=== PATIENT | female | born 1990 | race Two or more races ===

== ENCOUNTER 2019-05-16 22:34 | Inpatient (IN) | payer BC ==
[2019-05-17] MEDS ORDERED: Butorphanol 1 MG/ML SDV IVPUSH ONE (01:11)
[2019-05-17] MEDS: Lactated Ringers 1,000 ML IV SCH ×6 (01:40→21:00)
[2019-05-17] MEDS ORDERED: Misoprostol 200 MCG Tab PO PRN (06:21)
[2019-05-17] MEDS ORDERED: Butorphanol 1 MG/ML SDV IVPUSH PRN (06:21)
[2019-05-17] MEDS ORDERED: Tranexamic Acid 1,000 MG in Sodium Chloride 0.9% 100 ML IV PRN (06:21)
[2019-05-17] MEDS ORDERED: Lidocaine 1% 50 ML MDV INJECT PRN (06:21)
[2019-05-17] MEDS ORDERED: Nalbuphine 10 MG/1 ML Vial IVPUSH PRN (06:21)
[2019-05-17] MEDS ORDERED: Sodium Chloride 0.9% 10 ML Syringe FLUSH PRN (06:21)
[2019-05-17] MEDS ORDERED: Sodium Chloride 0.9% 10 ML SDV IV PRN (06:21)
[2019-05-17] MEDS ORDERED: Water For Irrigation,Sterile 1,000 ML Container IRR PRN (06:21)
[2019-05-17] MEDS ORDERED: Methylergonovine 0.2 MG/1 ML Amp IM PRN (06:21)
[2019-05-17] MEDS ORDERED: Sodium Chloride 0.9% 2.5 ML Syringe FLUSH PRN (06:21)
[2019-05-17] MEDS ORDERED: Carboprost Tromethamine 250 MCG/1 ML Amp IM PRN (06:21)
[2019-05-17] MEDS ORDERED: Ampicillin 2 GM in Sodium Chloride 0.9% 100 ML IV ONE (06:26)
[2019-05-17] MEDS ORDERED: Oxytocin/0.9 % Sodium Chloride 30 UNIT/500 ML BAG IV SCH ×2 (06:30→09:30)
[2019-05-17] MEDS ORDERED: Terbutaline 1 MG/ML SDV SUBCUT PRN (09:24)
[2019-05-17] MEDS ORDERED: fentaNYL 100 MCG/2 ML SDV ONE ×2 (10:10→20:55)
[2019-05-17] MEDS ORDERED: Ropivacaine HCl/PF 100 ML ONE ×2 (10:11→20:55)
[2019-05-17] MEDS ORDERED: Ropivacaine 0.2% 2 MG/ML 20 ML SDV ONE (10:11)
--- NOTE | 2019-05-17 11:11 | PCM.PREANE ---
Preanesthetic Assessment - Anesthesia/Transfusion/Family Hx Anesthesia History: Prior Anesthesia Without Reaction Family History of Anesthesia Reaction: No Transfusion History: No Prior Transfusion(s) - Review of Systems General: No Symptoms Pulmonary: No Symptoms Cardiovascular: No Symptoms Gastrointestinal: No Symptoms Neurological: No Symptoms Other: Reports: None - Physical Assessment Pulse: 81 O2 Sat by Pulse Oximetry: 100 Respiratory Rate: 20 Blood Pressure: 114/78 Temperature: 37 F Height: 5 ft 5 in Weight: 76.657 kg ASA Class: 2E Mental Status: Alert & Oriented x3 Airway Class: Mallampati = 1 Dentition: Reports: Normal Dentition ROM/Head Extension: Full Lungs: Clear to Auscultation, Normal Respiratory Effort Cardiovascular: Regular Rate, Regular Rhythm - Lab Values: Laboratory Last Values WBC 11.81 K/uL (4.0-11.0) H 05/17/19 06:40 RBC 4.84 M/uL (4.30-5.90) 05/17/19 06:40 Hgb 12.9 g/dL (12.0-16.0) 05/17/19 06:40 Hct 39.2 % (36.0-46.0) 05/17/19 06:40 MCV 81.0 fL (80.0-98.0) 05/17/19 06:40 MCH 26.7 pg (27.0-32.0) L 05/17/19 06:40 MCHC 32.9 g/dL (31.0-37.0) 05/17/19 06:40 RDW Std Deviation 38.1 fl (28.0-62.0) 05/17/19 06:40 RDW Coeff of Racheal 13 % (11.0-15.0) 05/17/19 06:40 Plt Count 143 K/uL (150-400) L 05/17/19 06:40 MPV 12.70 fL (7.40-12.00) H 05/17/19 06:40 Nucleated RBC % 0.0 /100WBC 05/17/19 06:40 Nucleated RBCs # 0 K/uL 05/17/19 06:40 Urine Color YELLOW 05/17/19 00:19 Urine Appearance SLT CLOUDY 05/17/19 00:19 Urine pH 6.0 (5.0-8.0) 06/26/19 00:19 Ur Specific [place] >= 1.030 (1.001-1.035) 05/17/19 00:19 Urine Protein NEGATIVE mg/dL (NEGATIVE) 05/17/19 00:19 Urine Glucose (UA) NEGATIVE mg/dL (NEGATIVE) 05/17/19 00:19 Urine Ketones NEGATIVE mg/dL (NEGATIVE) 05/17/19 00:19 Urine Occult Blood NEGATIVE (NEGATIVE) 05/17/19 00:19 Urine Nitrite NEGATIVE (NEGATIVE) 05/17/19 00:19 Urine Bilirubin NEGATIVE (NEGATIVE) 05/17/19 00:19 Urine Urobilinogen 0.2 EU/dL (<2.0) 05/17/19 00:19 Ur Leukocyte Esterase NEGATIVE (NEGATIVE) 05/17/19 00:19 Blood Type B POSITIVE 05/17/19 06:40 Antibody Screen NEGATIVE 05/17/19 06:40 - Allergies Allergies/Adverse Reactions: Allergies Allergy/AdvReac Type Severity Reaction Status Date / Time No Known Allergies Allergy Verified 05/16/19 22:58 - Blood Blood Available: No Product(s) Available: None - Anesthesia Plan Pre-Op Medication Ordered: None - Acknowledgements Anesthesia Type Planned: Epidural Pt an Appropriate Candidate for the Planned Anesthesia: Yes Alternatives and Risks of Anesthesia Discussed w Pt/Guardian: Yes Pt/Guardian Understands and Agrees with Anesthesia Plan: Yes PreAnesthesia Questionnaire HEENT History: Reports: None Cardiovascular History: Reports: None Respiratory History: Reports: None Gastrointestinal History: Reports: None Genitourinary History: Reports: None PROSPECTING OBSERVER History: Reports: Musculoskeletal History: Reports: None Neurological History: Reports: None Psychiatric History: Reports: None Endocrine/Metabolic History: Reports: None Hematologic History: Reports: None Oncologic (Cancer) History: Reports: None Dermatologic History: Reports: None - Infectious Disease History Infectious Disease History: Reports: Chicken Pox, Measles - Past Surgical History HEENT Surgical History: Reports: None - SUBSTANCE USE Smoking Status *Q: Never Smoker Second Hand Smoke Exposure: No Recreational Drug Use History: No - HOME MEDS Home Medications: Home Meds Vit #76/Iron,Carb/Fa [Pnv 29-1 Tablet] 1 tab PO DAILY 05/16/19 [History ] - CURRENT (IN HOUSE) MEDS Current Meds: Current Medications Butorphanol Tartrate (Stadol) 1 mg IVPUSH Q1H PRN PRN Reason: Pain Carboprost Tromethamine (Hemabate Ds) 250 mcg IM ASDIRECTED PRN PRN Reason: Post Hemorrhage Lactated Ringer's (Ringers, Lactated) 1,000 mls @ 999 mls/hr IV ASDIRECTED [facility] Last Admin: 05/17/19 01:40 Dose: 999 mls/hr Tranexamic Acid 1,000 mg/ (Sodium Chloride) 110 mls @ 660 mls/hr IV ONETIME PRN PRN Reason: Bleeding Lactated Ringer's (Ringers, Lactated) 1,000 mls @ 150 mls/hr IV ASDIRECTED [facility] Last Admin: 05/17/19 10:55 Dose: 999 mls/hr Oxytocin/Sodium Chloride (Oxytocin 30 Unit/500 Ml-Ns) 30 unit in 500 mls @ 500 mls/hr IV TITRATE [facility] Ampicillin Sodium 1 gm/ Sodium (Chloride) 50 mls @ 100 mls/hr IV Q4H [facility] Oxytocin/Sodium Chloride (Oxytocin 30 Unit/500 Ml-Ns) 30 unit in 500 mls @ 2 mls/hr IV TITRATE [facility]; Protocol Lidocaine HCl (Xylocaine 1%) 50 ml INJECT ONETIME PRN PRN Reason: Laceration repair Methylergonovine Maleate (Methergine) 0.2 mg IM ASDIRECTED PRN PRN Reason: Post Hemorrhage Misoprostol (Cytotec) 200 mcg PO ONETIME PRN PRN Reason: Post Hemorrhage Nalbuphine HCl (Nubain) 10 mg IVPUSH Q1H PRN PRN Reason: Pain (severe 7-10) Sodium Chloride (Saline Flush) 10 ml FLUSH ASDIRECTED PRN PRN Reason: Keep Vein Open Sodium Chloride (Saline Flush) 2.5 ml FLUSH ASDIRECTED PRN PRN Reason: Keep Vein Open Sodium Chloride (Normal Saline) 10 ml IV ASDIRECTED PRN PRN Reason: IV Use Sterile Water (Sterile Water For Irrigation) 1,000 ml IRR ASDIRECTED PRN PRN Reason: delivery Terbutaline Sulfate (Brethine) 0.25 mg SUBCUT ASDIRECTED PRN PRN Reason: Tacysystole Discontinued Medications Butorphanol Tartrate (Stadol) 1 mg IVPUSH ONETIME ONE Stop: 05/17/19 01:12 Last Admin: 05/17/19 01:42 Dose: 1 mg Fentanyl (Sublimaze) Confirm Administered Dose 200 mcg .ROUTE .STK-MED ONE Stop: 05/17/19 10:11 Ampicillin Sodium 2 gm/ Sodium (Chloride) 100 mls @ 200 mls/hr IV ONETIME ONE Stop: 05/17/19 06:55 Last Admin: 05/17/19 06:52 Dose: 200 mls/hr Ropivacaine (Naropin 0.2%) Confirm Administered Dose 100 mls @ as directed .ROUTE .STK-MED ONE Stop: 05/17/19 10:12 Ropivacaine (Naropin 0.2%) Confirm Administered Dose 20 ml .ROUTE .STK-MED ONE Stop: 05/17/19 10:12
[2019-05-17] MEDS: Ampicillin 1 GM in Sodium Chloride 0.9% 50 ML IV SCH ×4 (11:14→23:00)
[2019-05-17] MEDS ORDERED: Lidocaine 2% 5 ML SDV ONE (21:41)
[2019-05-17] MEDS ORDERED: Bupivacaine 0.5% 30 ML SDV ONE (22:41)
[2019-05-17] MEDS ORDERED: Propofol 200 MG/20 ML SDV ONE (22:42)
[2019-05-18] MEDS ORDERED: Morphine 2 MG/ML Syringe IVPUSH ONE (00:29)
[2019-05-18] MEDS ORDERED: Bisacodyl 10 MG Supp RECTAL PRN (00:59)
[2019-05-18] MEDS ORDERED: Lanolin 100% Cream 7 GM Tube TOP PRN (00:59)
[2019-05-18] MEDS ORDERED: Benzocaine/Menthol 20%-0.5% Spray 78 GM Cannister TOP PRN (00:59)
[2019-05-18] MEDS ORDERED: Acetaminophen 500 MG Tab PO PRN ×2 (00:59)
[2019-05-18] MEDS ORDERED: Witch Hazel Medicated Pads 40/Jar TOP PRN (00:59)
[2019-05-18] MEDS ORDERED: Ibuprofen 400 MG Tab PO PRN (00:59)
--- NOTE | 2019-05-18 01:09 | PCM.DEL ---
L & D Note - General Info Date of Service: 05/18/19 Mother's Due Date: 05/30/19 - Delivery Note Labor: Augmented by Oxytocin Delivery Outcome: Livebirth Infant Delivery Method: Spontaneous Vaginal Delivery-Single Presentation: Right Occiput Posterior (ROP) Nuchal Cord: None Anesthesia Type: Epidural Amniotic Fluid Description: Bloody Episiotomy Type: None Laceration: None Placenta: Intact Cord: 3 Vessels Estimated Blood Loss: 500 Resuscitation Needed: Yes [place]: Suctioned, Cathether, Stimulated, Warmed Score 1 min: 3 Score 5 min: 5 Score 10 min: 7 Delivery Comments (Free Text/Narrative):: Live male delivered at 00.08am , pending , weight 3330g . Delivered in ROP position. Noted some perineal and labial soft tissue swelling , will do cold compress - General Info Date of Service: 05/18/19 - Patient Data Vitals - Most Recent: Last Vital Signs Temp 2.7 C L 05/17/19 11:10 Pulse 81 05/17/19 11:10 Resp 20 05/17/19 11:10 BP 114/78 05/17/19 11:10 Pulse Ox 100 05/17/19 11:10 Weight - Most Recent: 76.657 kg Lab Results Last 24 Hours: Laboratory Results - last 24 hr 05/17/19 05/17/19 Range/Units 06:40 06:40 WBC 11.81 H (4.0-11.0) K/uL RBC 4.84 (4.30-5.90) M/uL Hgb 12.9 (12.0-16.0) g/dL Hct 39.2 (36.0-46.0) % MCV 81.0 (80.0-98.0) fL MCH 26.7 L (27.0-32.0) pg MCHC 32.9 (31.0-37.0) g/dL RDW Std Deviation 38.1 (28.0-62.0) fl RDW Coeff of Racheal 13 (11.0-15.0) % Plt Count 143 L (150-400) K/uL MPV 12.70 H (7.40-12.00) fL Nucleated RBC % 0.0 /100WBC Nucleated RBCs # 0 K/uL Blood Type B POSITIVE Antibody Screen NEGATIVE Med Orders - Current: Current Medications Carboprost Tromethamine (Hemabate Ds) 250 mcg IM ASDIRECTED PRN PRN Reason: Post Hemorrhage Lactated Ringer's (Ringers, Lactated) 1,000 mls @ 999 mls/hr IV ASDIRECTED [facility] Last Admin: 05/17/19 18:50 Dose: 150 mls/hr Tranexamic Acid 1,000 mg/ (Sodium Chloride) 110 mls @ 660 mls/hr IV ONETIME PRN PRN Reason: Bleeding Lactated Ringer's (Ringers, Lactated) 1,000 mls @ 150 mls/hr IV ASDIRECTED [facility] Last Admin: 05/17/19 21:00 Dose: 150 mls/hr Oxytocin/Sodium Chloride (Oxytocin 30 Unit/500 Ml-Ns) 30 unit in 500 mls @ 500 mls/hr IV TITRATE [facility] Oxytocin/Sodium Chloride (Oxytocin 30 Unit/500 Ml-Ns) 30 unit in 500 mls @ 2 mls/hr IV TITRATE [facility]; Protocol Last Titration: 05/17/19 19:39 Dose: 0 munits/min, 0 mls/hr Methylergonovine Maleate (Methergine) 0.2 mg IM ASDIRECTED PRN PRN Reason: Post Hemorrhage Last Admin: 05/18/19 00:22 Dose: 0.2 mg Misoprostol (Cytotec) 200 mcg PO ONETIME PRN PRN Reason: Post Hemorrhage Nalbuphine HCl (Nubain) 10 mg IVPUSH Q1H PRN PRN Reason: Pain (severe 7-10) Sodium Chloride (Saline Flush) 10 ml FLUSH ASDIRECTED PRN PRN Reason: Keep Vein Open Sodium Chloride (Saline Flush) 2.5 ml FLUSH ASDIRECTED PRN PRN Reason: Keep Vein Open Sodium Chloride (Normal Saline) 10 ml IV ASDIRECTED PRN PRN Reason: IV Use Sterile Water (Sterile Water For Irrigation) 1,000 ml IRR ASDIRECTED PRN PRN Reason: delivery Terbutaline Sulfate (Brethine) 0.25 mg SUBCUT ASDIRECTED PRN PRN Reason: Tacysystole Discontinued Medications Bupivacaine HCl (Marcaine 0.5%) Confirm Administered Dose 30 ml .ROUTE .STK-MED ONE Stop: 05/17/19 22:42 Butorphanol Tartrate (Stadol) 1 mg IVPUSH ONETIME ONE Stop: 05/17/19 01:12 Last Admin: 05/17/19 01:42 Dose: 1 mg Butorphanol Tartrate (Stadol) 1 mg IVPUSH Q1H PRN PRN Reason: Pain Fentanyl (Sublimaze) Confirm Administered Dose 200 mcg .ROUTE .STK-MED ONE Stop: 05/17/19 10:11 Fentanyl (Sublimaze) Confirm Administered Dose 100 mcg .ROUTE .STK-MED ONE Stop: 05/17/19 20:56 Ampicillin Sodium 2 gm/ Sodium (Chloride) 100 mls @ 200 mls/hr IV ONETIME ONE Stop: 05/17/19 06:55 Last Admin: 05/17/19 06:52 Dose: 200 mls/hr Ampicillin Sodium 1 gm/ Sodium (Chloride) 50 mls @ 100 mls/hr IV Q4H [facility] Last Admin: 05/17/19 23:00 Dose: 100 mls/hr Ropivacaine (Naropin 0.2%) Confirm Administered Dose 100 mls @ as directed .ROUTE .STK-MED ONE Stop: 05/17/19 10:12 Ropivacaine (Naropin 0.2%) Confirm Administered Dose 100 mls @ as directed .ROUTE .STK-MED ONE Stop: 05/17/19 20:56 Lidocaine (Xylocaine-Mpf 2%) Confirm Administered Dose 5 ml .ROUTE .STK-MED ONE Stop: 05/17/19 21:42 Lidocaine HCl (Xylocaine 1%) 50 ml INJECT ONETIME PRN PRN Reason: Laceration repair Morphine Sulfate (Morphine) 4 mg IVPUSH ONETIME ONE Stop: 05/18/19 00:30 Last Admin: 05/18/19 00:45 Dose: 4 mg Propofol (Diprivan 20 Ml) Confirm Administered Dose 200 mg .ROUTE .STK-MED ONE Stop: 05/17/19 22:43 Ropivacaine (Naropin 0.2%) Confirm Administered Dose 20 ml .ROUTE .STK-MED ONE Stop: 05/17/19 10:12 - Problem List Review Problem List Initiated/Reviewed/Updated: Yes - My Orders Last 24 Hours: My Active Orders 05/17/19 09:24 Bedrest Bathroom Privileges [RC] ASDIRECTED Communication Order [RC] ASDIRECTED Notify Provider [RC] PRN Notify Provider [RC] PRN Notify Provider [RC] STAT Oxygen Therapy [RC] ASDIRECTED Terbutaline [Brethine] 0.25 mg SUBCUT ASDIRECTED PRN 05/17/19 09:30 Oxytocin/0.9 % Sodium Chloride [Oxytocin 30 Unit/500 ML-NS] 30 unit in 500 ml IV TITRATE Medication Administration Instruction [OM.PC] Q3H 05/18/19 00:59 Patient Status [ADT] Routine May Shower [RC] ASDIRECTED Up ad Yolanda [RC] ASDIRECTED Vital Signs [RC] PER UNIT ROUTINE Acetaminophen [Tylenol Extra Strength] 1,000 mg PO Q4H PRN Acetaminophen [Tylenol Extra Strength] 500 mg PO Q4H PRN Benzocaine/Menthol [Dermoplast Pain Relief 20%-0.5% [place]] 78 gm TOP ASDIRECTED PRN Bisacodyl [Dulcolax] 10 mg RECTAL ONETIME PRN Docusate Sodium [Colace] 100 mg PO BID PRN Ibuprofen [Motrin] 400 mg PO Q4H PRN Ibuprofen [Motrin] 800 mg PO Q6H PRN Lanolin [Lansinoh HPA] See Dose Instructions TOP ASDIRECTED PRN Witch Maribeth [Tucks] 1 pad TOP ASDIRECTED PRN oxyCODONE 5 mg PO Q2H PRN Assess Lochia [WOMSER] Per Unit Routine Assess Uterine Involution [WOMSER] Per Unit Routine Peripheral IV Discontinue [OM.PC] Routine Resuscitation Status Routine 05/19/19 05:11 HEMOGLOBIN/HEMATOCRIT,HH [HEME] Timed
[2019-05-18] MEDS: oxyCODONE 5 MG Tab PO PRN ×3 (02:35→14:42)
[2019-05-18] MEDS: Ibuprofen 800 MG Tab PO PRN ×3 (04:25→18:26)
[2019-05-18] MEDS: Docusate Sodium 100 MG Cap PO PRN (09:32)
--- NOTE | 2019-05-18 10:53 | PCM.POSTAN ---
POST ANESTHESIA ASSESSMENT - MENTAL STATUS Mental Status: Oriented - RESPIRATORY Respiratory Status: Respiratory Rate WNL, Airway Patent, O2 Saturation Stable - CARDIOVASCULAR CV Status: Pulse Rate WNL, Blood Pressure Stable - GASTROINTESTINAL GI Status: No Symptoms - POST OP HYDRATION Hydration Status: Adequate & Stable
[2019-05-19] MEDS: Ibuprofen 800 MG Tab PO PRN ×3 (01:39→19:44)
--- NOTE | 2019-05-19 07:06 | PCM48HPAN ---
Post Anesthesia Note - EVALUATION WITHIN 48HRS OF ANESTHETIC Vital Signs in Normal Range: Yes Patient Participated in Evaluation: Yes Respiratory Function Stable: Yes Airway Patent: Yes Cardiovascular Function Stable: Yes Hydration Status Stable: Yes Pain Control Satisfactory: Yes Nausea and Vomiting Control Satisfactory: Yes Mental Status Recovered: Yes Pulse Rate: 95 SaO2: 97 Resp Rate: 17 Temperature: 97.6 F Blood Pressure: 111/71
[2019-05-19] MEDS: Docusate Sodium 100 MG Cap PO PRN ×2 (08:07→19:43)
--- NOTE | 2019-05-19 10:20 | PCM.PNPP ---
- General Info Date of Service: 05/19/19 Subjective Update: 28 yo P2 s/p , ambulating , , good pain control. on IV antibiotics for 48hrs Functional Status: Reports: Pain Controlled, Tolerating Diet, Ambulating, Urinating - Review of Systems General: Reports: No Symptoms HEENT: Reports: No Symptoms Pulmonary: Reports: No Symptoms Cardiovascular: Reports: No Symptoms Gastrointestinal: Reports: No Symptoms Genitourinary: Reports: No Symptoms Musculoskeletal: Reports: No Symptoms Skin: Reports: No Symptoms Neurological: Reports: No Symptoms Psychiatric: Reports: No Symptoms - General Info Date of Service: 05/19/19 - Patient Data Vital Signs - Most Recent: Last Vital Signs Temp 36.2 C 05/19/19 07:43 Pulse 64 05/19/19 07:43 Resp 16 05/19/19 07:43 BP 122/85 05/19/19 07:43 Pulse Ox 96 05/19/19 07:43 Weight - Most Recent: 76.657 kg Lab Results - Last 24 Hours: Laboratory Results - last 24 hr 05/19/19 Range/Units 05:18 Hgb 10.5 L (12.0-16.0) g/dL Hct 32.5 L (36.0-46.0) % Med Orders - Current: Current Medications Acetaminophen (Tylenol Extra Strength) 500 mg PO Q4H PRN PRN Reason: Pain Last Admin: 05/18/19 02:39 Dose: 500 mg Acetaminophen (Tylenol Extra Strength) 1,000 mg PO Q4H PRN PRN Reason: Pain Last Admin: 05/19/19 06:33 Dose: 1,000 mg Benzocaine/Menthol (Dermoplast Pain Relief 20%-0.5% [place]) 78 gm TOP ASDIRECTED PRN PRN Reason: Perineal Comfort Measure Last Admin: 05/18/19 09:46 Dose: 1 canister Bisacodyl (Dulcolax) 10 mg RECTAL ONETIME PRN PRN Reason: Constipation Carboprost Tromethamine (Hemabate Ds) 250 mcg IM ASDIRECTED PRN PRN Reason: Post Hemorrhage Docusate Sodium (Colace) 100 mg PO BID PRN PRN Reason: Constipation Last Admin: 05/19/19 08:07 Dose: 100 mg Emollient Ointment (Lansinoh Hpa) 0 gm TOP ASDIRECTED PRN PRN Reason: Sore Nipples Last Admin: 05/18/19 09:47 Dose: 1 tube Lactated Ringer's (Ringers, Lactated) 1,000 mls @ 999 mls/hr IV ASDIRECTED [facility] Last Admin: 05/17/19 18:50 Dose: 150 mls/hr Tranexamic Acid 1,000 mg/ (Sodium Chloride) 110 mls @ 660 mls/hr IV ONETIME PRN PRN Reason: Bleeding Lactated Ringer's (Ringers, Lactated) 1,000 mls @ 150 mls/hr IV ASDIRECTED [facility] Last Admin: 05/17/19 21:00 Dose: 150 mls/hr Oxytocin/Sodium Chloride (Oxytocin 30 Unit/500 Ml-Ns) 30 unit in 500 mls @ 500 mls/hr IV TITRATE [facility] Oxytocin/Sodium Chloride (Oxytocin 30 Unit/500 Ml-Ns) 30 unit in 500 mls @ 2 mls/hr IV TITRATE [facility]; Protocol Last Titration: 05/17/19 19:39 Dose: 0 munits/min, 0 mls/hr Ibuprofen (Motrin) 400 mg PO Q4H PRN PRN Reason: Pain Ibuprofen (Motrin) 800 mg PO Q6H PRN PRN Reason: Pain Last Admin: 05/19/19 10:05 Dose: 800 mg Methylergonovine Maleate (Methergine) 0.2 mg IM ASDIRECTED PRN PRN Reason: Post Hemorrhage Last Admin: 05/18/19 00:22 Dose: 0.2 mg Misoprostol (Cytotec) 200 mcg PO ONETIME PRN PRN Reason: Post Hemorrhage Nalbuphine HCl (Nubain) 10 mg IVPUSH Q1H PRN PRN Reason: Pain (severe 7-10) Oxycodone HCl (Oxycodone) 5 mg PO Q2H PRN PRN Reason: Pain Last Admin: 05/18/19 14:42 Dose: 5 mg Sodium Chloride (Saline Flush) 10 ml FLUSH ASDIRECTED PRN PRN Reason: Keep Vein Open Sodium Chloride (Saline Flush) 2.5 ml FLUSH ASDIRECTED PRN PRN Reason: Keep Vein Open Sodium Chloride (Normal Saline) 10 ml IV ASDIRECTED PRN PRN Reason: IV Use Sterile Water (Sterile Water For Irrigation) 1,000 ml IRR ASDIRECTED PRN PRN Reason: delivery Terbutaline Sulfate (Brethine) 0.25 mg SUBCUT ASDIRECTED PRN PRN Reason: Tacysystole Witch Maribeth (Tucks) 1 pad TOP ASDIRECTED PRN PRN Reason: comfort care Last Admin: 05/18/19 09:47 Dose: 1 tub Discontinued Medications Bupivacaine HCl (Marcaine 0.5%) Confirm Administered Dose 30 ml .ROUTE .STK-MED ONE Stop: 05/17/19 22:42 Last Admin: 05/18/19 19:38 Dose: Not Given Butorphanol Tartrate (Stadol) 1 mg IVPUSH ONETIME ONE Stop: 05/17/19 01:12 Last Admin: 05/17/19 01:42 Dose: 1 mg Butorphanol Tartrate (Stadol) 1 mg IVPUSH Q1H PRN PRN Reason: Pain Fentanyl (Sublimaze) Confirm Administered Dose 200 mcg .ROUTE .STK-MED ONE Stop: 05/17/19 10:11 Last Admin: 05/18/19 19:37 Dose: Not Given Fentanyl (Sublimaze) Confirm Administered Dose 100 mcg .ROUTE .STK-MED ONE Stop: 05/17/19 20:56 Last Admin: 05/18/19 19:37 Dose: Not Given Ampicillin Sodium 2 gm/ Sodium (Chloride) 100 mls @ 200 mls/hr IV ONETIME ONE Stop: 05/17/19 06:55 Last Admin: 05/17/19 06:52 Dose: 200 mls/hr Ampicillin Sodium 1 gm/ Sodium (Chloride) 50 mls @ 100 mls/hr IV Q4H VIANEY Last Admin: 05/17/19 23:00 Dose: 100 mls/hr Ropivacaine (Naropin 0.2%) Confirm Administered Dose 100 mls @ as directed .ROUTE .STK-MED ONE Stop: 05/17/19 10:12 Last Admin: 05/18/19 19:37 Dose: Not Given Ropivacaine (Naropin 0.2%) Confirm Administered Dose 100 mls @ as directed .ROUTE .STK-MED ONE Stop: 05/17/19 20:56 Last Admin: 05/18/19 19:37 Dose: Not Given Lidocaine (Xylocaine-Mpf 2%) Confirm Administered Dose 5 ml .ROUTE .STK-MED ONE Stop: 05/17/19 21:42 Last Admin: 05/18/19 19:37 Dose: Not Given Lidocaine HCl (Xylocaine 1%) 50 ml INJECT ONETIME PRN PRN Reason: Laceration repair Morphine Sulfate (Morphine) 4 mg IVPUSH ONETIME ONE Stop: 05/18/19 00:30 Last Admin: 05/18/19 00:45 Dose: 4 mg Propofol (Diprivan 20 Ml) Confirm Administered Dose 200 mg .ROUTE .STK-MED ONE Stop: 05/17/19 22:43 Ropivacaine (Naropin 0.2%) Confirm Administered Dose 20 ml .ROUTE .STK-MED ONE Stop: 05/17/19 10:12 Last Admin: 05/18/19 19:37 Dose: Not Given - Infant Interaction Support Person: - Recovery Exam Fundal Tone: Firm Fundal Level: 1 Fingerbreadths Below Umbilicus Fundal Placement: Midline Lochia Amount: Scant Lochia Color: Rubra/Red Perineum Description: Edematous Episiotomy/Laceration: None Bladder Status: Voiding Urinary Elimination: Voided - Exam General: Alert, Oriented HEENT: Pupils Equal Neck: Supple Lungs: Clear to Auscultation Cardiovascular: Regular Rate, Regular Rhythm GI/Abdominal Exam: Normal Bowel Sounds Extremities: Normal Inspection Wound/Incisions: Healing Well Neurological: No New Focal Deficit Psy/Mental Status: Alert - Problem List & Annotations (1) Vaginal delivery SNOMED Code(s): 173118299 Code(s): O80 - ENCOUNTER FOR FULL-TERM UNCOMPLICATED DELIVERY Status: Acute Current Visit: Yes - Problem List Review Problem List Initiated/Reviewed/Updated: Yes - Assessment Assessment:: 28 yo P2 s/p , ambulating , , good pain control. on IV antibiotics for 48hrs - Plan Plan:: Routine care Pain control as needed
[2019-05-20] MEDS: Ibuprofen 800 MG Tab PO PRN (02:04)
--- NOTE | 2019-05-20 09:48 | PCM.PNPP ---
- General Info Date of Service: 05/20/19 Subjective Update: 28 yo P2 s/p , ambulating , , good pain control. PPD2 stable Functional Status: Reports: Pain Controlled, Tolerating Diet, Ambulating, Urinating - Review of Systems General: Reports: No Symptoms HEENT: Reports: No Symptoms Pulmonary: Reports: No Symptoms Cardiovascular: Reports: No Symptoms Gastrointestinal: Reports: No Symptoms Genitourinary: Reports: No Symptoms Musculoskeletal: Reports: No Symptoms Skin: Reports: No Symptoms Neurological: Reports: No Symptoms Psychiatric: Reports: No Symptoms - General Info Date of Service: 05/20/19 - Patient Data Vital Signs - Most Recent: Last Vital Signs Temp 36.4 C 05/20/19 07:15 Pulse 86 05/20/19 07:15 Resp 17 05/20/19 07:15 BP 117/76 05/20/19 07:15 Pulse Ox 97 05/20/19 07:15 Weight - Most Recent: 76.657 kg Med Orders - Current: Current Medications Acetaminophen (Tylenol Extra Strength) 500 mg PO Q4H PRN PRN Reason: Pain Last Admin: 05/18/19 02:39 Dose: 500 mg Acetaminophen (Tylenol Extra Strength) 1,000 mg PO Q4H PRN PRN Reason: Pain Last Admin: 05/19/19 06:33 Dose: 1,000 mg Benzocaine/Menthol (Dermoplast Pain Relief 20%-0.5% [place]) 78 gm TOP ASDIRECTED PRN PRN Reason: Perineal Comfort Measure Last Admin: 05/18/19 09:46 Dose: 1 canister Bisacodyl (Dulcolax) 10 mg RECTAL ONETIME PRN PRN Reason: Constipation Carboprost Tromethamine (Hemabate Ds) 250 mcg IM ASDIRECTED PRN PRN Reason: Post Hemorrhage Docusate Sodium (Colace) 100 mg PO BID PRN PRN Reason: Constipation Last Admin: 05/19/19 19:43 Dose: 100 mg Emollient Ointment (Lansinoh Hpa) 0 gm TOP ASDIRECTED PRN PRN Reason: Sore Nipples Last Admin: 05/18/19 09:47 Dose: 1 tube Lactated Ringer's (Ringers, Lactated) 1,000 mls @ 999 mls/hr IV ASDIRECTED VIANEY Last Admin: 05/17/19 18:50 Dose: 150 mls/hr Tranexamic Acid 1,000 mg/ (Sodium Chloride) 110 mls @ 660 mls/hr IV ONETIME PRN PRN Reason: Bleeding Lactated Ringer's (Ringers, Lactated) 1,000 mls @ 150 mls/hr IV ASDIRECTED VIANEY Last Admin: 05/17/19 21:00 Dose: 150 mls/hr Oxytocin/Sodium Chloride (Oxytocin 30 Unit/500 Ml-Ns) 30 unit in 500 mls @ 500 mls/hr IV TITRATE VIANEY Oxytocin/Sodium Chloride (Oxytocin 30 Unit/500 Ml-Ns) 30 unit in 500 mls @ 2 mls/hr IV TITRATE VIANEY; Protocol Last Titration: 05/17/19 19:39 Dose: 0 munits/min, 0 mls/hr Ibuprofen (Motrin) 400 mg PO Q4H PRN PRN Reason: Pain Ibuprofen (Motrin) 800 mg PO Q6H PRN PRN Reason: Pain Last Admin: 05/20/19 02:04 Dose: 800 mg Methylergonovine Maleate (Methergine) 0.2 mg IM ASDIRECTED PRN PRN Reason: Post Hemorrhage Last Admin: 05/18/19 00:22 Dose: 0.2 mg Misoprostol (Cytotec) 200 mcg PO ONETIME PRN PRN Reason: Post Hemorrhage Nalbuphine HCl (Nubain) 10 mg IVPUSH Q1H PRN PRN Reason: Pain (severe 7-10) Oxycodone HCl (Oxycodone) 5 mg PO Q2H PRN PRN Reason: Pain Last Admin: 05/18/19 14:42 Dose: 5 mg Sodium Chloride (Saline Flush) 10 ml FLUSH ASDIRECTED PRN PRN Reason: Keep Vein Open Sodium Chloride (Saline Flush) 2.5 ml FLUSH ASDIRECTED PRN PRN Reason: Keep Vein Open Sodium Chloride (Normal Saline) 10 ml IV ASDIRECTED PRN PRN Reason: IV Use Sterile Water (Sterile Water For Irrigation) 1,000 ml IRR ASDIRECTED PRN PRN Reason: delivery Terbutaline Sulfate (Brethine) 0.25 mg SUBCUT ASDIRECTED PRN PRN Reason: Tacysystole Witch Maribeth (Tucks) 1 pad TOP ASDIRECTED PRN PRN Reason: comfort care Last Admin: 05/18/19 09:47 Dose: 1 tub Discontinued Medications Bupivacaine HCl (Marcaine 0.5%) Confirm Administered Dose 30 ml .ROUTE .STK-MED ONE Stop: 05/17/19 22:42 Last Admin: 05/18/19 19:38 Dose: Not Given Butorphanol Tartrate (Stadol) 1 mg IVPUSH ONETIME ONE Stop: 05/17/19 01:12 Last Admin: 05/17/19 01:42 Dose: 1 mg Butorphanol Tartrate (Stadol) 1 mg IVPUSH Q1H PRN PRN Reason: Pain Fentanyl (Sublimaze) Confirm Administered Dose 200 mcg .ROUTE .STK-MED ONE Stop: 05/17/19 10:11 Last Admin: 05/18/19 19:37 Dose: Not Given Fentanyl (Sublimaze) Confirm Administered Dose 100 mcg .ROUTE .STK-MED ONE Stop: 05/17/19 20:56 Last Admin: 05/18/19 19:37 Dose: Not Given Ampicillin Sodium 2 gm/ Sodium (Chloride) 100 mls @ 200 mls/hr IV ONETIME ONE Stop: 05/17/19 06:55 Last Admin: 05/17/19 06:52 Dose: 200 mls/hr Ampicillin Sodium 1 gm/ Sodium (Chloride) 50 mls @ 100 mls/hr IV Q4H VIANEY Last Admin: 05/17/19 23:00 Dose: 100 mls/hr Ropivacaine (Naropin 0.2%) Confirm Administered Dose 100 mls @ as directed .ROUTE .STK-MED ONE Stop: 05/17/19 10:12 Last Admin: 05/18/19 19:37 Dose: Not Given Ropivacaine (Naropin 0.2%) Confirm Administered Dose 100 mls @ as directed .ROUTE .STK-MED ONE Stop: 05/17/19 20:56 Last Admin: 05/18/19 19:37 Dose: Not Given Lidocaine (Xylocaine-Mpf 2%) Confirm Administered Dose 5 ml .ROUTE .STK-MED ONE Stop: 05/17/19 21:42 Last Admin: 05/18/19 19:37 Dose: Not Given Lidocaine HCl (Xylocaine 1%) 50 ml INJECT ONETIME PRN PRN Reason: Laceration repair Morphine Sulfate (Morphine) 4 mg IVPUSH ONETIME ONE Stop: 05/18/19 00:30 Last Admin: 05/18/19 00:45 Dose: 4 mg Propofol (Diprivan 20 Ml) Confirm Administered Dose 200 mg .ROUTE .STK-MED ONE Stop: 05/17/19 22:43 Ropivacaine (Naropin 0.2%) Confirm Administered Dose 20 ml .ROUTE .STK-MED ONE Stop: 05/17/19 10:12 Last Admin: 05/18/19 19:37 Dose: Not Given - Infant Interaction Support Person: - Recovery Exam Fundal Tone: Firm Fundal Level: 1 Fingerbreadths Below Umbilicus Fundal Placement: Midline Lochia Amount: Scant Lochia Color: Rubra/Red Perineum Description: Intact, Minimal Bruising/Swelling Episiotomy/Laceration: None Bladder Status: Voiding Urinary Elimination: Voided - Exam General: Alert, Oriented HEENT: Pupils Equal Neck: Supple Lungs: Clear to Auscultation Cardiovascular: Regular Rate, Regular Rhythm GI/Abdominal Exam: Normal Bowel Sounds Extremities: Normal Inspection Neurological: No New Focal Deficit Psy/Mental Status: Alert - Problem List & Annotations (1) Vaginal delivery SNOMED Code(s): 608271610 Code(s): O80 - ENCOUNTER FOR FULL-TERM UNCOMPLICATED DELIVERY Status: Acute Current Visit: Yes - Problem List Review Problem List Initiated/Reviewed/Updated: No - Assessment Assessment:: 28 yo P2 s/p , ambulating , , good pain control. PPD2 - Plan Plan:: Discharge home today
--- NOTE | 2019-05-20 09:51 | PCM.DCSUM1 ---
Discharge Summary - Hospital Course Brief History: 28 yo s/p PPD2 Diagnosis: Stroke: No - Discharge Data Discharge Date: 05/20/19 Discharge Disposition: Home, Self-Care 01 Condition: Good - Discharge Diagnosis/Problem(s) (1) Vaginal delivery SNOMED Code(s): 524031111 ICD Code: O80 - ENCOUNTER FOR FULL-TERM UNCOMPLICATED DELIVERY Status: Acute Current Visit: Yes - Patient Instructions Diet: Usual Diet as Tolerated Activity: As Tolerated Showering/Bathing: May Shower Notify Provider of: Fever, Increased Pain, Swelling and Redness, Drainage - Discharge Plan *PRESCRIPTION DRUG MONITORING PROGRAM REVIEWED*: No *COPY OF PRESCRIPTION DRUG MONITORING REPORT IN PATIENT QUETA: No Home Medications: Home Meds Vit #76/Iron,Carb/Fa [Pnv 29-1 Tablet] 1 tab PO DAILY 05/16/19 [History ] Patient Handouts: Vaginal Delivery, Care After Referrals: [facility] [Outside] Elias Sena MD [Physician] - 07/05/19 11:15 am - Discharge Summary/Plan Comment DC Time >30 min.: No - Patient Data Vitals - Most Recent: Last Vital Signs Temp 36.4 C 05/20/19 07:15 Pulse 86 05/20/19 07:15 Resp 17 05/20/19 07:15 BP 117/76 05/20/19 07:15 Pulse Ox 97 05/20/19 07:15 Weight - Most Recent: 76.657 kg Med Orders - Current: Current Medications Acetaminophen (Tylenol Extra Strength) 500 mg PO Q4H PRN PRN Reason: Pain Last Admin: 05/18/19 02:39 Dose: 500 mg Acetaminophen (Tylenol Extra Strength) 1,000 mg PO Q4H PRN PRN Reason: Pain Last Admin: 05/19/19 06:33 Dose: 1,000 mg Benzocaine/Menthol (Dermoplast Pain Relief 20%-0.5% [place]) 78 gm TOP ASDIRECTED PRN PRN Reason: Perineal Comfort Measure Last Admin: 05/18/19 09:46 Dose: 1 canister Bisacodyl (Dulcolax) 10 mg RECTAL ONETIME PRN PRN Reason: Constipation Carboprost Tromethamine (Hemabate Ds) 250 mcg IM ASDIRECTED PRN PRN Reason: Post Hemorrhage Docusate Sodium (Colace) 100 mg PO BID PRN PRN Reason: Constipation Last Admin: 05/19/19 19:43 Dose: 100 mg Emollient Ointment (Lansinoh Hpa) 0 gm TOP ASDIRECTED PRN PRN Reason: Sore Nipples Last Admin: 05/18/19 09:47 Dose: 1 tube Lactated Ringer's (Ringers, Lactated) 1,000 mls @ 999 mls/hr IV ASDIRECTED VIANEY Last Admin: 05/17/19 18:50 Dose: 150 mls/hr Tranexamic Acid 1,000 mg/ (Sodium Chloride) 110 mls @ 660 mls/hr IV ONETIME PRN PRN Reason: Bleeding Lactated Ringer's (Ringers, Lactated) 1,000 mls @ 150 mls/hr IV ASDIRECTED VIANEY Last Admin: 05/17/19 21:00 Dose: 150 mls/hr Oxytocin/Sodium Chloride (Oxytocin 30 Unit/500 Ml-Ns) 30 unit in 500 mls @ 500 mls/hr IV TITRATE VIANEY Oxytocin/Sodium Chloride (Oxytocin 30 Unit/500 Ml-Ns) 30 unit in 500 mls @ 2 mls/hr IV TITRATE VIANEY; Protocol Last Titration: 05/17/19 19:39 Dose: 0 munits/min, 0 mls/hr Ibuprofen (Motrin) 400 mg PO Q4H PRN PRN Reason: Pain Ibuprofen (Motrin) 800 mg PO Q6H PRN PRN Reason: Pain Last Admin: 05/20/19 02:04 Dose: 800 mg Methylergonovine Maleate (Methergine) 0.2 mg IM ASDIRECTED PRN PRN Reason: Post Hemorrhage Last Admin: 05/18/19 00:22 Dose: 0.2 mg Misoprostol (Cytotec) 200 mcg PO ONETIME PRN PRN Reason: Post Hemorrhage Nalbuphine HCl (Nubain) 10 mg IVPUSH Q1H PRN PRN Reason: Pain (severe 7-10) Oxycodone HCl (Oxycodone) 5 mg PO Q2H PRN PRN Reason: Pain Last Admin: 05/18/19 14:42 Dose: 5 mg Sodium Chloride (Saline Flush) 10 ml FLUSH ASDIRECTED PRN PRN Reason: Keep Vein Open Sodium Chloride (Saline Flush) 2.5 ml FLUSH ASDIRECTED PRN PRN Reason: Keep Vein Open Sodium Chloride (Normal Saline) 10 ml IV ASDIRECTED PRN PRN Reason: IV Use Sterile Water (Sterile Water For Irrigation) 1,000 ml IRR ASDIRECTED PRN PRN Reason: delivery Terbutaline Sulfate (Brethine) 0.25 mg SUBCUT ASDIRECTED PRN PRN Reason: Tacysystole Witch Maribeth (Tucks) 1 pad TOP ASDIRECTED PRN PRN Reason: comfort care Last Admin: 05/18/19 09:47 Dose: 1 tub Discontinued Medications Bupivacaine HCl (Marcaine 0.5%) Confirm Administered Dose 30 ml .ROUTE .STK-MED ONE Stop: 05/17/19 22:42 Last Admin: 05/18/19 19:38 Dose: Not Given Butorphanol Tartrate (Stadol) 1 mg IVPUSH ONETIME ONE Stop: 05/17/19 01:12 Last Admin: 05/17/19 01:42 Dose: 1 mg Butorphanol Tartrate (Stadol) 1 mg IVPUSH Q1H PRN PRN Reason: Pain Fentanyl (Sublimaze) Confirm Administered Dose 200 mcg .ROUTE .STK-MED ONE Stop: 05/17/19 10:11 Last Admin: 05/18/19 19:37 Dose: Not Given Fentanyl (Sublimaze) Confirm Administered Dose 100 mcg .ROUTE .STK-MED ONE Stop: 05/17/19 20:56 Last Admin: 05/18/19 19:37 Dose: Not Given Ampicillin Sodium 2 gm/ Sodium (Chloride) 100 mls @ 200 mls/hr IV ONETIME ONE Stop: 05/17/19 06:55 Last Admin: 05/17/19 06:52 Dose: 200 mls/hr Ampicillin Sodium 1 gm/ Sodium (Chloride) 50 mls @ 100 mls/hr IV Q4H VIANEY Last Admin: 05/17/19 23:00 Dose: 100 mls/hr Ropivacaine (Naropin 0.2%) Confirm Administered Dose 100 mls @ as directed .ROUTE .STK-MED ONE Stop: 05/17/19 10:12 Last Admin: 05/18/19 19:37 Dose: Not Given Ropivacaine (Naropin 0.2%) Confirm Administered Dose 100 mls @ as directed .ROUTE .STK-MED ONE Stop: 05/17/19 20:56 Last Admin: 05/18/19 19:37 Dose: Not Given Lidocaine (Xylocaine-Mpf 2%) Confirm Administered Dose 5 ml .ROUTE .STK-MED ONE Stop: 05/17/19 21:42 Last Admin: 05/18/19 19:37 Dose: Not Given Lidocaine HCl (Xylocaine 1%) 50 ml INJECT ONETIME PRN PRN Reason: Laceration repair Morphine Sulfate (Morphine) 4 mg IVPUSH ONETIME ONE Stop: 05/18/19 00:30 Last Admin: 05/18/19 00:45 Dose: 4 mg Propofol (Diprivan 20 Ml) Confirm Administered Dose 200 mg .ROUTE .STK-MED ONE Stop: 05/17/19 22:43 Ropivacaine (Naropin 0.2%) Confirm Administered Dose 20 ml .ROUTE .STK-MED ONE Stop: 05/17/19 10:12 Last Admin: 05/18/19 19:37 Dose: Not Given *Q Meaningful Use (DIS) - VTE *Q VTE Criteria *Q: No prophylaxis
--- NOTE | 2019-05-23 09:03 | OR ---
SURGEON: RASHAD MAGDALENO DATE OF PROCEDURE: 05/18/2019 PREOPERATIVE DIAGNOSES: A 28-year-old, 2, para 1, with contractions in early labor. POSTOPERATIVE DIAGNOSIS: G2, P1-0-0-1 at 38 weeks and 4 days in early labor. PROCEDURE PERFORMED: Normal spontaneous vaginal delivery. ESTIMATED BLOOD LOSS: 500 mL. IV FLUIDS: Pitocin running. ANESTHESIA: Epidural. FINDINGS: A live male delivered in right occiput posterior position. scores were 3, 5, 7. Weight is 3330 g. Time of delivery was 0008. After delivery, perineal hematoma was noted. BRIEF HISTORY: The patient is a G2, P1-0-0-1 at 38 weeks and 4 days, who came in early labor. She was complaining of contraction. She was found to be about 2 to 3 cm dilated. She made change and was requesting epidural, which she got. She was GBS positive. She was given 2 doses of ampicillin, and Pitocin was also started. AROM was done. After AROM was done, she was 6 cm dilated, and she rapidly changed to fully dilated. The baby was in the occiput posterior position. Attention was returned to the head. The baby had some late variable decelerations. There was always moderate variability. The patient was With patient being fully dilated, the patient was encouraged to to push. About 2 hours was spent pushing by the patient, and she then delivered the baby and head was delivered in occiput posterior position, followed subsequently by the posterior shoulder. The body of the was delivered and infant was placed on maternal abdomen. Immediate cord clamping was observed. The infant was handed over to the awaiting nursery nurse and arts administrator or manager. Baby was resuscitated. After that, the placenta was delivered by controlled cord traction. Bleeding was noted. The patient was given Methergine. Then, the uterus was massaged. The perineum was inspected and noted to be intact. All instrument and pad count were correct x2. The patient tolerated the procedure well and left the Labor and Delivery suite in stable condition. BRENNEN ORR /[id number]
== END 2019-05-20 10:40 | disposition home or self-care (01) | DRG 560 ==
LOC: EDSEX → MW.OBCHECK 22:34 → MW.OB 22:36 → MW.OBCHECK 05-17 06:21 → MW.OB 05-17 20:08 → OBSVTOIN 05-18 00:08 → MW.OB 05-18 09:17
PROVIDERS: ADMIT Obstetrics & Gynecology; ATTEND Obstetrics & Gynecology
PROC: 10E0XZZ Delivery of Products of Conception, External Approach (ICD-10-PCS; principal; 2019-05-18)
PROC: 10907ZC Drainage of Amniotic Fluid, Therapeutic from Products of Conception, Via Natural or Artificial Opening (ICD-10-PCS; 2019-05-18)
PROC: 4A1HXCZ Monitoring of Products of Conception, Cardiac Rate, External Approach (ICD-10-PCS; 2019-05-18)
PROC: 10H07YZ Insertion of Other Device into Products of Conception, Via Natural or Artificial Opening (ICD-10-PCS; 2019-05-18)
DX: O99.824 Streptococcus B carrier state complicating childbirth (principal); Z37.0 Single live birth; Z3A.38 38 weeks gestation of pregnancy; O76 Abnormality in fetal heart rate and rhythm complicating labor and delivery
CPT/HCPCS: 01967; 36415; 51702; 59025; 59409; 81003; 85014; 85018; 85027; 86850; 86900; 86901; A9270-GY; J0290; J0595; J2210; J2270; J2590; J2704; J7030; J7050; J7120